=== PATIENT | female | born 1995 | race Caucasian/White ===

== ENCOUNTER 2022-02-19 13:25 | Emergency (ER) | payer BC, SELFPAY ==
[2022-02-19 13:40] VITALS: BP 106/73; PULSE 91; RESP 18; TEMP 36.8; O2SAT 99; BMI 41.3
--- NOTE | 2022-02-19 14:27 | ED.GENADULT ---
HPI - General Adult General Time Seen by Provider: 14:26 Date Seen: 02/19/22 Chief complaint: Abdominal Pain Stated complaint: 6 weeks , food poisoning Time Seen by Provider: 02/19/22 13:48 Source: patient Mode of arrival: ambulatory Limitations: no limitations History of Present Illness HPI narrative: Josie is a at around 6 weeks gestation with her LMP at 01/07, who presents to the emergency department with abdominal pain. Patient states she ate [place] food tonight with her , she woke up around 645 this morning with some epigastric abdominal pain, crampy in nature, no radiation, she did not take anything for it. She denies any vomiting but had some nausea, she had 3 stools this morning. No abdominal surgeries, she does have PCOS and takes metformin. She denies any fevers, chills allergies, no COVID exposure. Her was asymptomatic. She felt fine prior to eating the [place] food, patient has had upset stomach from eating the same [place] food in the past, at that time she had some vomiting with diarrhea. Patient states that she has had epigastric discomfort over the last 9 years, sometimes after foods, she cut out carbohydrates in her diet which help with her chronic diarrhea, she has also had an ultrasound which was normal 7 years ago. Her 1st intake is on March 04. Pain is crampy in nature. Minimal at this time. No urinary complaints or vaginal discharge. Related Data Home Medications Medication Instructions Recorded Confirmed metformin 500 mg tablet mg PO BID 02/19/22 Allergies Allergy/AdvReac Type Severity Reaction Status Date / Time No Known Drug Allergies Allergy Verified 02/19/22 13:45 Review of Systems Status of ROS: Reports: 10 or more systems reviewed and unremarkable except as noted in History and below [facility] Social History Smoking Status: Never smoker Do you use any of these nicotine containing products: None Second hand tobacco smoke exposure: No How often do you have a drink containing alcohol: never AUDIT-C Alcohol total score: 0 Non-prescribed substance use: denies use Exam Const: Vital Signs, click to edit/add: Vital Signs - 24 hr 02/19/22 13:40 Temperature 98.3 F Pulse Rate [Right Pulse Oximeter] 91 Respiratory Rate 18 Blood Pressure [Ri ght Upper Arm] 106/73 Pulse Oximetry 99 Common normals: no apparent distress and oriented x3 Exam limitations: altered mental status General appearance: cooperative Orientation/consciousness: Yes awake HENMT: Common normals: normocephalic and TM's normal bilaterally Head and scalp: normal to inspection and normocephalic Tympanic membrane: TM's normal bilaterally Mouth: oral and palatal mucosa normal Throat: posterior oropharynx normal Eye: Common normals: PERRL and EOMs intact bilaterally General eye: normal appearance of both eyes Visual acuity: acuity normal Pupil: PERRL Neck & C-Spine: Common normals: full ROM, no lymphadenopathy and supple Lymph: Lymphatic: no lymphadenopathy noted Chest: Common normals: inspection of chest normal Resp: Common normals: normal respiratory effort, no retractions and clear to auscultation bilaterally Auscultation: clear to auscultation bilaterally Cardio: Common normals: regular rate, regular rhythm, S1 normal heart sound and S2 normal heart sound Rate: regular rate Rhythm: regular rhythm Heart sounds: S1 normal and S2 normal GI: Common normals: Normal to inspection, nondistended, normoactive bowel sounds present and soft to palpation Palpation: soft Other: Tender to palpation in the epigastric region. : Common normals: no CVA tenderness Bladder/kidney exam: no CVA tenderness Back & Pelvis: Common normals: no CVA tenderness and thoracic and lumbar spine normal to inspection Extremity: Common normals: normal to inspection and full ROM Neuro: Common normals: oriented x3 and CN's II-XII intact bilaterally Sensorium/orientation: awake Course Course Hospital Course: AIDET perfomed, vitals are normal. Workup will include IV peripheral, 0.9 normal saline bolus, 4 mg IV Zofran and 20 mg oral pepcid, will obtain urinalysis, CBC, CRP, CMP lipase. Suspect gastritis, possible cholecystitis. Differential diagnosis includes life-threatening diagnosis of appendicitis, mesenteric ischemia, bowel perforation, ectopic , of the differential diagnosis includes cystitis pancreatitis hepatitis gastritis GERD diverticulitis PUD pyelonephritis renal colic, ovarian cyst torsion, spontaneous as well as other etiologies. Reevaluation(s) Reevaluation #1: She is doing well, she was updated on her lab results, CBC showed mild leukocytosis 11.05, likely secondary to , mildly elevated CRP at 1.2, LFTs within normal limits, we will still obtain US. limited ultrasound to look at her gallbladder. Bedside ultrasound did show evidence cholelithiasis, unable to visualize IUP at this time, patient has no vaginal bleeding or abdominal pain suspecting miscarriage or ectopic . Time: 16:15 Reevaluation #2: Vilma and are updated on ultrasound result, it did show cholelithiasis but no evidence of cholecystitis. Style on orals in the emergency department, plan to discharge, patient has follow-up on March 04 for her 1st intake, she could continue with Pepcid [id number], return if worsening symptoms. Vital Signs Vital signs: Initial Vital Signs Temperature 98.3 F 02/19/22 13:40 Temperature Source Temporal Artery Scan 02/19/22 13:40 Pulse Rate 91 02/19/22 13:40 Respiratory Rate 18 02/19/22 13:40 Blood Pressure 106/73 02/19/22 13:40 Blood Pressure Mean 84 02/19/22 13:40 Blood Pressure Position Sitting 02/19/22 13:40 Pulse Oximetry 99 02/19/22 13:40 Oxygen Delivery Method 02/19/22 13:40 Vital Signs Temperature 98.3 F 02/19/22 13:40 Pulse Rate 91 02/19/22 13:40 Respiratory Rate 18 02/19/22 13:40 Blood Pressure 106/73 02/19/22 13:40 Pulse Oximetry 99 02/19/22 13:40 Temperature 98.3 F 02/19/22 13:40 Pulse Rate 91 02/19/22 13:40 Respiratory Rate 18 02/19/22 13:40 Blood Pressure 106/73 02/19/22 13:40 Pulse Oximetry 99 02/19/22 13:40 Medical Decision Making Lab Data Labs: Lab Results 02/19/22 02/19/22 02/19/22 Range/Units 15:15 15:15 16:00 WBC 11.05 H (4.50-11.00) K/uL RBC 4.61 (4.00-5.20) m/uL Hgb 13.6 (12.0-16.0) gm/dL Hct 40.7 (33.0-51.0) % MCV 88 (80-100) fL MCH 30 (26-34) pg MCHC 33 (32-36) gm/dL RDW Coeff of Deena 13.0 (11.5-15.5) % Plt Count 369 (140-440) K/uL Neut % (Auto) 84.6 H (42.0-72.0) % Lymph % (Auto) 7.2 L (20-44) % [place] % (Auto) 6.1 (0.0-11.0) % Eos % (Auto) 1.4 (0.0-7.0) % Baso % (Auto) 0.1 (0.0-3.0) % Neut # (Auto) 9.30 H (1.7-7.0) K/uL Lymph # (Auto) 0.80 L (0.90-2.90) K/uL [place] # (Auto) 0.70 (0.00-0.90) K/UL Eos # (Auto) 0.20 (0.00-0.50) K/uL Baso # (Auto) 0.00 (0.00-0.30) K/uL Abs Immat Gran (auto) 0.07 (0.00-0.30) K/uL Sodium 140 (135-149) mmol/L Potassium 3.6 (3.6-5.1) mmol/L Chloride 107 (96-114) mmol/L Carbon Dioxide 20 (20-32) mmol/L BUN 8 (5-24) mg/dL Creatinine 0.5 (0.5-1.5) mg/dL Estimated Creat Clear 155.42 Glucose 102 (60-115) mg/dL Calcium 8.8 (8.4-10.6) mg/dL Total Bilirubin 0.9 (0.1-1.5) mg/dL AST 29 (12-35) U/L ALT 33 (4-35) U/L Alkaline Phosphatase 47 (40-150) U/L C-Reactive Protein 1.2 H (0.5-1.0) mg/dL Total Protein 7.4 (6.0-8.3) g/dL Albumin 4.5 (3.3-5.0) g/dL Lipase 132 (23-300) U/L Urine Color Bhakti A (Yellow) Urine Appearance Slightly Cloudy A (Clear) Urine pH 5.5 (5.0-8.5) Ur Specific [place] >= 1.030 (1.000-1.030) Urine Protein Negative (Negative) Urine Glucose (UA) Negative (Negative) Urine Ketones 1+ A (Negative) Urine Blood Negative (Negative) Urine Nitrite Negative (Negative) Urine Bilirubin Negative (Negative) Urine Urobilinogen 0.2 (0.2-1.0) Ur Leukocyte Esterase Negative (Negative) Urine RBC 0-2 (0-2) Urine WBC 2-5 (0-5) Ur Squamous Epith Cells Few (None-Few) Uric Acid Crystals Moderate H (None) Urine Bacteria None (None) Discharge Plan Discharge Clinical Impression: First trimester , Acute epigastric pain Patient Disposition: Home, Self-Care Condition: Improved Instructions: Abdominal Pain (ED) Additional Instructions: To follow up with first intake as scheduled on March 04. Return if worsening symptoms. Activity Level: Activity as Tolerated Discharge Diet: Regular Prescriptions: No Action metformin 500 mg tablet PO BID 0RF Follow Up/Referrals: Provider,Not a Local [Primary Care Provider] - Stand Alone Forms: [employer] Info Instructions
[2022-02-19] MEDS: 0.9 % SODIUM CHLORIDE 1000 ml 1,000 ML IV (15:09)
[2022-02-19] MEDS: ONDANSETRON 2 MG/ML inj 4 MG IVP (15:10)
[2022-02-19] MEDS: FAMOTIDINE 20 MG TABLET PO (15:10)
[2022-02-19 15:33] LABS: Basophils Percent Auto 0.1 % (0.0-3.0); Eosinophils Percent Auto 1.4 % (0.0-7.0); Hematocrit 40.7 % (33.0-51.0); Hemoglobin* 13.6 gm/dL (12.0-16.0); Immature Granulocytes Abs Auto 0.07 K/uL (0.00-0.30); Lymphocytes Percent Auto 7.2 % (20-44); Mean Corpuscular HGB Conc 33 gm/dL (32-36); Mean Corpuscular Hemoglobin 30 pg (26-34); Mean Corpuscular Volume 88 fL (80-100); Monocytes Percent Auto 6.1 % (0.0-11.0); Neutrophils Percent Auto 84.6 % (42.0-72.0); Platelet Count* 369 K/uL (140-440); Red Blood Count 4.61 m/uL (4.00-5.20); White Blood Count* 11.05 K/uL (4.50-11.00)
[2022-02-19 15:41] LABS: Albumin* 4.5 g/dL (3.3-5.0); Chloride* 107 mmol/L (96-114)
[2022-02-19 15:42] LABS: Potassium* 3.6 mmol/L (3.6-5.1); Sodium* 140 mmol/L (135-149)
[2022-02-19 15:44] LABS: Bilirubin Total* 0.9 mg/dL (0.1-1.5); Creatinine* 0.5 mg/dL (0.5-1.5); Est. Creatinine Clearance* 155.42; Estimated Glomerular Filt Rate 130.12
[2022-02-19 15:45] LABS: Alanine Aminotransferase* 33 U/L (4-35); Alkaline Phosphatase* 47 U/L (40-150); Aspartate Amino Transferase* 29 U/L (12-35); Blood Urea Nitrogen* 8 mg/dL (5-24); Carbon Dioxide* 20 mmol/L (20-32); Glucose* 102 mg/dL (60-115); Lipase* 132 U/L (23-300); Total Protein* 7.4 g/dL (6.0-8.3)
[2022-02-19 15:46] LABS: Calcium* 8.8 mg/dL (8.4-10.6)
[2022-02-19 15:48] LABS: C Reactive Protein* 1.2 mg/dL (0.5-1.0)
--- NOTE | 2022-02-19 15:57 | ED.NURSE ---
Pt ambulatory to the BR w/ a steady gait. Reports she is feeling better, stomach pain has lessened. Does endorse fatigue which she believes is r/t .
--- NOTE | 2022-02-19 16:10 | US_ITS ---
Final Report Patient: ZBIGNIEW HESS Facility:?[facility] Patient ID:?[id number] Site Patient ID:?[id number]. Site :?[id number] Study:?US Abdomen -02/19/2022 4:57:03 PM Ordering Physician:?Chyna Vale Final Report: INDICATION: Right upper quadrant pain. TECHNIQUE: Ultrasound abdomen limited. Sonographic images of the right upper quadrant were obtained using donato-scale and color Doppler images. COMPARISON: None. FINDINGS: Liver: Increased echogenicity is compatible with steatosis. Hypoechoic lesion the left lobe measures 2.3 x 1.7 x 1.4 cm. Focal fatty sparing along the gallbladder fossa. Gallbladder: No stones or sludge. Normal wall thickness. No pericholecystic fluid. Common bile duct: 6 mm. Pancreas: Unremarkable. Right kidney: Normal in size. Normal echotexture and cortex. No suspicious masses, stones, or hydronephrosis. Vasculature: Proximal abdominal aorta and IVC are unremarkable. IMPRESSION: 1. Fatty infiltration of the liver. 2. Hypoechoic lesion left hepatic lobe does not show central vasculature and is indeterminate, but could be a cyst. If definitive characterization is needed, the best imaging study would be nonemergent abdominal MRI. Dictated by Angel Mchugh MD @ 02/19/2022 5:41:53 PM (Electronic Signature)
[2022-02-19 16:13] LABS: Appearance Urine Slightly Cloudy (Clear); Bilirubin Urine Negative (Negative); Blood Urine Negative (Negative); Glucose Urine Negative (Negative); Ketones Urine 1+ (Negative); Leukocyte Esterase Urine Negative (Negative); Nitrite Urine Negative (Negative); Protein Urine Negative (Negative); Specific Gravity Urine >= 1.030 (1.000-1.030); Urobilinogen Urine 0.2 (0.2-1.0); pH Urine 5.5 (5.0-8.5)
[2022-02-19 16:30] LABS: Color Urine Amber (Yellow); Squamous Epithelial Cell Urine Few (None-Few)
[2022-02-19 16:38] LABS: Uric Acid Crystals Urine Moderate
[2022-02-19 17:24] LABS: Slide Review Reflex No
--- NOTE | 2022-02-19 17:27 | ED.NURSE ---
Call to lab about add-on urine culture.
[2022-02-20 10:15] LABS: RBC Urine 0-2 (0-2)
== END 2022-02-19 17:40 | disposition home or self-care (01) ==
PROVIDERS: Emergency Provider Student in an Organized Health Care Education/Training Program
DX: R10.13 Epigastric pain (principal); Z3A.01 Less than 8 weeks gestation of pregnancy
CPT/HCPCS: 96374; 36415; 76705; 80053; 81001; 83690; 85025; 86140; 87086; 99283; 99284; A9270; J2405; J7030

== ENCOUNTER 2024-09-25 08:19 | Outpatient (CLI) | payer BC, OTHER, SELFPAY ==
[2024-09-27 16:49] LABS: Estradiol Premenol Female 66 pg/mL
== END 2024-09-25 08:20 | disposition home or self-care (01) ==
PROVIDERS: Visit Provider Obstetrics & Gynecology
DX: Z31.41 Encounter for fertility testing (principal)
CPT/HCPCS: 36415; 82670; 83001; 83520; 84443